=== PATIENT | male | born 1945 | race Caucasian/White ===

== ENCOUNTER → 2018-04-24 | Outpatient (CLI) | payer MEDICARE ==
[~2018-04-24] MED LIST: AZEL137S6; BUDE180A; CALC625T23; CETI10CA; CHOL2000; CLOT10TR; CYAN500T2; DICL100G19; DIPH25TA65; FLUN25SP3; FLUT15CR; HYDR-3307; LEVA1.2527; LEVA15HF4; LORA10CA; METO-93; MULT1CAP19; OMEP-110; OXYC30TA66; OXYC5TAB3; OXYM30SP; PRED10TA14; RIVA20TA; SALM50DI; TAMS-11; TEST1.25; TIOT18CA; ZOLP10TA; [UNRECOGNIZED DRUG - CODE]
== END | disposition home or self-care (01) ==
LOC: CFH 12:53
PROVIDERS: ATTEND Internal Medicine Cardiovascular Disease
DX: I35.1 Nonrheumatic aortic (valve) insufficiency (principal); I35.8 Other nonrheumatic aortic valve disorders; I10 Essential (primary) hypertension
CPT/HCPCS: 93306

== ENCOUNTER → 2020-12-24 | Outpatient (CLI) | payer MEDICARE ==
[~2020-12-24] MED LIST changes: -CYAN500T2; +CYAN500T7; +HYDR-3248; -HYDR-3307; -OXYC5TAB3; +OXYC5TAB98; -OXYM30SP; +OXYM30SP27
== END | disposition home or self-care (01) ==
LOC: CFH 13:13
PROVIDERS: ATTEND Internal Medicine Cardiovascular Disease
DX: I08.3 Combined rheumatic disorders of mitral, aortic and tricuspid valves (principal); I11.0 Hypertensive heart disease with heart failure; I50.32 Chronic diastolic (congestive) heart failure
CPT/HCPCS: 93306; 93356